=== PATIENT | female | born 1985 | race Two or more races ===

== ENCOUNTER 2018-06-13 07:57 | Outpatient (CLI) | payer OTHER | END 2018-06-13 08:13 | disposition home or self-care (01) | LOC: LAB 07:57 | DX: Z34.82 Encounter for supervision of other normal pregnancy, second trimester (principal) ==

== ENCOUNTER 2018-10-11 10:30 | Inpatient (IN) | payer OTHER ==
[~2018-10-11] VITALS: Ht 160 cm; Wt 72.1 kg
[2018-11-06] MEDS ORDERED: VALTREX1000 MG PO (16:19)
[2018-11-06] MEDS ORDERED: PRENATAL + DHA1 EAC1 PO (16:20)
== END 2018-11-09 12:37 | DRG 768 ==
LOC: EDSTATUS 10:30 → ADM 10:30 → LDR 11-06 14:58 → OB/GYN 11-07 10:30 → SURG-SUITE 11-07 19:44
PROVIDERS: ADMIT Obstetrics & Gynecology
PROC: 10D07Z6 Extraction of Products of Conception, Vacuum, Via Natural or Artificial Opening (ICD-10-PCS; principal; 2018-11-06)
PROC: 0DQR0ZZ Repair Anal Sphincter, Open Approach (ICD-10-PCS; 2018-11-06)
PROC: 0UQMXZZ Repair Vulva, External Approach (ICD-10-PCS; 2018-11-06)
PROC: 3E033VJ Introduction of Other Hormone into Peripheral Vein, Percutaneous Approach (ICD-10-PCS; 2018-11-06)
PROC: 4A1HXCZ Monitoring of Products of Conception, Cardiac Rate, External Approach (ICD-10-PCS; 2018-11-07)
DX: O70.21 Third degree perineal laceration during delivery, IIIa (principal); Z37.0 Single live birth; O66.5 Attempted application of vacuum extractor and forceps; Z3A.40 40 weeks gestation of pregnancy

== ENCOUNTER 2018-10-24 11:30 | Outpatient (CLI) | payer OTHER | END 2018-10-24 12:00 | disposition home or self-care (01) | LOC: NST 11:30 | DX: Z34.83 Encounter for supervision of other normal pregnancy, third trimester (principal) ==

== ENCOUNTER 2018-10-25 10:30 | Outpatient (CLI) | payer OTHER | END 2018-10-25 11:17 | disposition home or self-care (01) | LOC: NST 10:30 | DX: Z34.83 Encounter for supervision of other normal pregnancy, third trimester (principal) ==

== ENCOUNTER 2018-11-01 10:52 | Outpatient (CLI) | payer OTHER | END 2018-11-01 11:34 | disposition home or self-care (01) | LOC: NST 10:52 | DX: O26.893 Other specified pregnancy related conditions, third trimester (principal); R10.2 Pelvic and perineal pain; Z3A.39 39 weeks gestation of pregnancy ==